=== PATIENT | female | born 1955 | race Caucasian/White ===

== ENCOUNTER 2018-08-12 13:21 | Day surgery (SDC) | payer OTHER ==
[2018-08-12] MEDS ORDERED: PROPOFOL 40 ML (15:18)
[2018-08-12] MEDS ORDERED: LIDOCAINE 2% (SDV) 5 ML INJ (15:18)
== END 2018-08-12 18:21 | disposition home or self-care (01) ==
LOC: GIL 13:21
DX: Z12.11 Encounter for screening for malignant neoplasm of colon (principal); K29.50 Unspecified chronic gastritis without bleeding; K64.8 Other hemorrhoids; K20.8 Other esophagitis; K44.9 Diaphragmatic hernia without obstruction or gangrene; I10 Essential (primary) hypertension; E78.5 Hyperlipidemia, unspecified; E11.9 Type 2 diabetes mellitus without complications; E66.9 Obesity, unspecified; Z68.31 Body mass index [BMI] 31.0-31.9, adult
CPT/HCPCS: 43239; 82962; 88305; 88312